=== PATIENT | male | born 1990 | race Caucasian/White ===

== ENCOUNTER 2017-12-16 15:26 | Observation (INO) ==
[~2017-12-16 15:26] MED LIST: Glycopyrrolate Inj 1 MG/5 ML Syringe IV.PUSH ONE; Lidocaine PF 1% Inj 5 ML Syringe INFILTRATN ONE; Neostigmine Inj 5 MG/5 ML Syringe IV.PUSH ONE; Succinylcholine Inj 100 MG/5 ML Syringe IV.PUSH ONE
[2017-12-16] MEDS ORDERED: Sod Chloride 0.9% Inj 1,000 ML IV.SIG ONE (16:48)
[2017-12-16 17:28] LABS: Baso % (Auto) 0.6 % (0.0-2.0); Eos # (Auto) 0.1 th/mm3 (0.0-0.4); Eos % (Auto) 1.6 % (0.0-4.0); Hematocrit 43.6 % (39.0-51.0); Lymph % (Auto) 26.2 % (9.0-44.0); Mean Corpuscular HGB Conc 34.3 % (32.0-36.0); Mean Corpuscular Hemoglobin 29.1 pg (27.0-34.0); Mean Corpuscular Volume 84.6 fL (80.0-100.0); Mean Platelet Volume 8.2 fL (7.0-11.0); Mono # (Auto) 0.6 th/mm3 (0.0-0.9); Mono % (Auto) 8.6 % (0.0-8.0); Neut # (Auto) 4.7 th/mm3 (1.8-7.7); Platelet Count 221 th/mm3 (150-450); Red Blood Count 5.15 mil/mm3 (4.50-5.90); White Blood Count 7.4 th/mm3 (4.0-11.0)
[2017-12-16 17:38] LABS: Bacteria,Urine Rare /hpf; Bilirubin,Urine Negative (Negative); Clarity,Urine Hazy (Clear); Color,Urine Yellow (Yellw/Straw); Glucose,Urine (UA) Negative (Negative); Leukocyte Esterase,Urine Negative (Negative); Mucus,Urine Many /lpf (Occasional); Nitrite,Urine Negative (Negative); Specific Gravity,Urine 1.029 (1.002-1.035); Squamous Epithelial Cell,Urine 1 /hpf (0-5)
[2017-12-16] MEDS ORDERED: Morphine Inj 4 MG/ML Vial IV.PUSH ONE ×3 (17:46→20:45)
[2017-12-16 17:49] LABS: Albumin 4.4 g/dL (3.4-5.0); Anion Gap 7 meq/L (5-15); Aspartate Aminotransferase 32 U/L (15-37); Blood Urea Nitrogen 14 mg/dL (7-18); Carbon Dioxide 26.9 meq/L (21.0-32.0); Chloride 105 meq/L (98-107); Glomerular Filtration Rate 75 mL/min (>89); Glucose,Random 89 mg/dL (74-106); Lipase 123 U/L (73-393); Potassium 3.5 meq/L (3.5-5.1); Sodium 139 meq/L (136-145)
[2017-12-16 17:53] LABS: Alanine Aminotransferase 51 U/L (12-78); Alkaline Phosphatase 59 U/L (45-117); Total Protein 8.8 g/dL (6.4-8.2)
[2017-12-16] MEDS ORDERED: Diatrizoate Meglum/Diatrizoate Sod Liq 9 ML UDC ONE (18:16)
[2017-12-16] MEDS ORDERED: Diatrizoate Meglum/Diatrizoate Sod Liq 9 ML UDC PO ONE (18:30)
--- NOTE | 2017-12-16 19:07 | CT ---
EXAM DATE: 12/16/2017 6:58 PM EDT AGE/SEX: 27 years / Male INDICATIONS: Right lower abdomen pain, rule out appendicitis CLINICAL DATA: This is the patient's initial encounter. Patient reports that signs and symptoms have been present for 1 day and indicates a pain score of 10/10. MEDICAL/SURGICAL HISTORY: Gastroesophageal reflux disease. None. ORAL CONTRAST: Prescribed oral contrast ingested. RADIATION DOSE: 9.75 CTDI (mGy) COMPARISON: No prior exams available for comparison. TECHNIQUE: Multiple contiguous axial images were obtained through the abdomen and pelvis following b olus infusion of 96ML ml Omnipaque 350 (iohexol) nonionic water-soluble contrast as a single exam d ose. Prescribed oral contrast ingested. Using automated exposure control and adjustment of the mA an d/or kV according to patient size, radiation dose was kept as low as reasonably achievable to obtain optimal diagnostic quality images. DICOM format image data is available electronically for review an d comparison. FINDINGS: Lower lungs are clear. There is no pericardial effusion Liver and gallbladder are unremarkable . Pancreas and spleen appear normal Adrenal glands unremarkable Right left kidneys are normal with symmetrical function There is no ascites or adenopathy The cecum and ascending colon appear normal.. I do not see an appendix. However, there are no inflammatory changes in the right lower quadrant. There is mild bowel wall thickening in the transverse colon. The descending colon appears normal In the pelvis there are a few are scattered diverticuli in a short segment of the sigmoid colon. Pelvis is otherwise unremarkable. There is no free fluid or free air. There are mild degenerative changes in the lower lumbar spine. CONCLUSION: I do not see inflammatory changes in the right lower quadrant. I do not see the appendix either. Mild bowel wall thickening in the transverse colon nonspecific. There is no free fluid or adenopathy.enopathy. Electronically signed by: Ty Guerrero MD 12/16/2017 7:05 PM EDT
[2017-12-16] MEDS ORDERED: Acetaminophen 325 MG Tablet PO PRN (19:53)
[2017-12-16] MEDS ORDERED: Bisacodyl 10 MG Supp RECTAL PRN (19:53)
[2017-12-16] MEDS ORDERED: Temazepam 15 MG Capsule PO PRN (19:53)
--- NOTE | 2017-12-16 19:56 | P.HPIM ---
History of Present Illness Primary Care Physician: No Primary Care Physician History of Present Illness: This is a 27-year-old male with no significant PMH who presented to the ER with complaints of RLQ pain x2 days. States symptoms have gotten progressively worse , pain is now severe, 10/10, non-radiating, associated w/ nausea and decreased appetite, but no vomiting or diarrhea. No h/o similar symptoms in the past. Denies fever or chills. On arrival, BP 144/83, HR 89, O2 sat 98% on RA, Afebrile. CBC unremarkable. Chemistry essentially unremarkable. CRP 5.3. UA negative for UTI. CT Abdomen/Pelvis with appendix not visualized, mild bowel wall thickening in transverse colon. Dr. Shaikh consulted, will re-eval in am for possible appendicitis/surgical intervention. - Diagnosis (1) Acute appendicitis (2) Intractable abdominal pain Review of Systems All other systems reviewed negative except as stated in HPI PMFSH - History History Provided By: Patient - Medical History Medical History: Medical History (Last Reviewed 12/16/17 @ 19:58 by BHARGAV Rizzo) Patient denies medical problems Acid reflux [place] teeth extracted - Tobacco History Smoking Status: Never smoker - Alcohol History How Often Do You Have a Drink Containing Alcohol: 2 to 4 times a month - Substance Use History Substance History: No History of Abuse - Travel History Recent Travel in the [place] Within the Last 8 Weeks: No Recent Travel Out of the Country Within the Last 8 Weeks: No - Immunization History Tetanus Immunization: >5 Years Hx Influenza Vaccine This Season: No Medications and Allergies Allergies Allergy/AdvReac Type Severity Reaction Status Date / Time bee venom protein (honey bee) Allergy Severe Swelling Verified 12/16/17 17:01 erythromycin base Allergy Severe Rash Verified 12/16/17 17:01 penicillin G Allergy Severe Rash Verified 12/16/17 17:01 Sulfa (Sulfonamide Allergy Severe Rash Verified 12/16/17 17:01 Antibiotics) sulfamethoxazole Allergy Severe Rash Verified 12/16/17 17:01 trimethoprim Allergy Severe Rash Verified 12/16/17 17:01 Home Medications Medication Instructions Recorded Confirmed Type pantoprazole [Protonix] 40 mg PO DAILY 12/16/17 12/16/17 History Exam Vital signs: Vital Signs 12/16/17 15:56 12/16/17 16:53 12/16/17 19:21 Temperature 98.3 F Pulse Rate 89 69 67 Respiratory Rate Blood Pressure 144/83 H 138/84 124/75 Pulse Oximetry 98 100 99 Intake & Output 12/16/17 12/16/17 12/17/17 06:59 18:59 06:59 Intake Total 1000 / 1000 Balance 1000 / 1000 Weight 92.986 kg Intake: IV 1000 / 1000 NS Inj 1,000 ML @ Wide Open IV. 1000 / 1000 SIG BOLUS ONE Rx#:[id number] Narrative: PE: GENERAL: Very pleasant young white male in no acute distress. Mom at bedside. HEENT: PERRLA, EOMI. No scleral icterus or conjunctival pallor. No lid lag or facial droop. CARDIOVASCULAR: Regular rate and rhythm. No obvious murmurs to auscultation. No chest tenderness to palpation. RESPIRATORY: No obvious rhonchi or wheezing. Clear to auscultation. Breath sounds equal bilaterally. GASTROINTESTINAL: Abdomen soft, non-tender, nondistended. BS normal. RLE tenderness to palpation, +rebound MUSCULOSKELETAL: Extremities without clubbing, cyanosis, or edema. No obvious deformities. NEUROLOGICAL: Awake, alert and oriented x4. No focal neurologic deficits. Moving both upper and lower extremities spontaneously. Results - Labs CBC & Chem 7: 12/16/17 16:08 12/16/17 16:08 Labs: Short CBC 12/16/17 Range/Units 16:08 WBC 7.4 (4.0-11.0) th/mm3 Hgb 15.0 (13.0-17.0) gm/dL Hct 43.6 (39.0-51.0) % Plt Count 221 (150-450) th/mm3 BMP 12/16/17 16:08 Sodium 139 Potassium 3.5 Chloride 105 Carbon Dioxide 26.9 BUN 14 Creatinine 1.18 Calcium 9.0 Liver Function 12/16/17 Range/Units 16:08 Total Bilirubin 0.5 (0.2-1.0) mg/dL AST 32 (15-37) U/L ALT 51 (12-78) U/L Alkaline Phosphatase 59 (45-117) U/L Albumin 4.4 (3.4-5.0) g/dL Urine 12/16/17 Range/Units 16:08 Urine Color Yellow (Yellw/Straw) Urine Clarity Hazy H (Clear) Urine pH 5.0 (5.0-8.5) Ur Specific [place] 1.029 (1.002-1.035) Urine Protein 30 H (Neg-Trace) mg/dL Urine Glucose (UA) Negative (Negative) mg/dL - Imaging Impressions Abdomen/Pelvis CT 12/16/17 17:17 CONCLUSION: I do not see inflammatory changes in the right lower quadrant. I do not see the appendix either. Mild bowel wall thickening in the transverse colon nonspecific. There is no free fluid or adenopathy.enopathy. Caprini VTE Risk Assessment Caprini VTE Risk Assessment: No/Low Risk (score <= 1) Caprini Risk Assessment Model: Point Value = 1 Point Value = 2 Point Value = 3 Point Value = 5 Age 41-60 Minor surgery BMI > 25 kg/m2 Swollen legs Varicose veins or History of unexplained or recurrent spontaneous Oral contraceptives or hormone replacement Sepsis (< 1 month) Serious lung disease, including pneumonia (< 1 month) Abnormal pulmonary function Acute myocardial infarction Congestive heart failure (< 1 month) History of inflammatory bowel disease Medical patient at bed rest Age 61-74 Arthroscopic surgery Major open surgery (> 45 min) Laparoscopic surgery (> 45 min) Malignancy Confined to bed (> 72 hours) Immobilizing plaster cast Central venous access Age >= 75 History of VTE Family history of VTE Factor V Leiden Prothrombin [id number] Lupus anticoagulant Anticardiolipin antibodies Elevated serum homocysteine Heparin-induced thrombocytopenia Other congenital or acquired thrombophilia Stroke (< 1 month) Elective arthroplasty Hip, pelvis, or leg fracture Acute spinal cord injury (< 1 month) Prophylaxis Regimen: Total Risk Factor Score Risk Level Prophylaxis Regimen 0-1 Low Early ambulation 2 Moderate Order ONE of the following: *Sequential Compression Device (SCD) *Heparin 5000 units SQ BID 3-4 Higher Order ONE of the following medications: *Heparin 5000 units SQ TID *Enoxaparin/Lovenox 40 mg SQ daily (WT < 150 kg, CrCl > 30 mL/min) *Enoxaparin/Lovenox 30 mg SQ daily (WT < 150 kg, CrCl > 10-29 mL/min) *Enoxaparin/Lovenox 30 mg SQ BID (WT < 150 kg, CrCl > 30 mL/min) AND/OR *Sequential Compression Device (SCD) 5 or more Highest Order ONE of the following medications: *Heparin 5000 units SQ TID (Preferred with Epidurals) *Enoxaparin/Lovenox 40 mg SQ daily (WT < 150 kg, CrCl > 30 mL/min) *Enoxaparin/Lovenox 30 mg SQ daily (WT < 150 kg, CrCl > 10-29 mL/min) *Enoxaparin/Lovenox 30 mg SQ BID (WT < 150 kg, CrCl > 30 mL/min) AND *Sequential Compression Device (SCD) Assessment and Plan - Assessment (1) Acute appendicitis Code(s): K35.80 - Unspecified acute appendicitis Status: Acute (2) Intractable abdominal pain Code(s): R10.9 - Unspecified abdominal pain Status: Acute - Plan A/P: 1. Appendicitis: acute onset of RLQ x2 days, now progressively worse, CT Abd/ Pelvis w/ non-visualized appendix, mild bowel wall thickening of transverse colon, nonspecific, images reviewed. On exam, +rebound. Dr. Shaikh consulted, will re-eval in am for possible appendicitis/surgical intervention. NPO after midnight, IVF, analgesics/antiemetics as needed. 2. Intractable Pain: secondary to above, s/p Morphine/Zofran in ER w/ some improvement however persistent pain complaints, continue analgesics/antiemetics as needed. 3. DVT Prophylaxis: SCD/Teds 4. Social work for d/c planning as needed. 5. Case discussed w/ ER physician at length, labs/records/imaging reviewed by me. (1) Acute appendicitis Qualifiers: Acute appendicitis type: unspecified acute appendicitis type Qualified Code(s ): K35.80 - Unspecified acute appendicitis
--- NOTE | 2017-12-16 20:01 | ED ---
HPI General Chief Complaint: Abdominal Pain Stated Complaint: Abd pain Time Seen by Provider: 12/16/17 16:47 Source: patient Mode of arrival: ambulatory Limitations: no limitations History of Present Illness HPI narrative: 27-year-old male that presents to the ED for evaluation of right lower quadrant abdominal pain since Sunday. Per patient his Sunday he has had this and is progressively getting worse. More severe today. Is what prompted evaluation. Per patient the pain is 8 out of 10. Does not radiate. States only the right lower quadrant. Patient moving his knees close to his chest seemed to help with the pain. Pushing on the abdomen seems to relieve it as well but whenever he lets go the pain gets more severe. States that he feels like a pressure. Per patient he has been having chills and sweats but no fever. No bowel movement issues. No urinary issues. No history of this in the past. Per patient he still has an appendix. No surgeries to his abdomen. Related Data Home Medications Medication Instructions Recorded Confirmed pantoprazole [Protonix] 40 mg PO DAILY 12/16/17 12/16/17 Allergies Allergy/AdvReac Type Severity Reaction Status Date / Time bee venom protein (honey bee) Allergy Severe Swelling Verified 12/16/17 17:01 erythromycin base Allergy Severe Rash Verified 12/16/17 17:01 penicillin G Allergy Severe Rash Verified 12/16/17 17:01 Sulfa (Sulfonamide Allergy Severe Rash Verified 12/16/17 17:01 Antibiotics) sulfamethoxazole Allergy Severe Rash Verified 12/16/17 17:01 trimethoprim Allergy Severe Rash Verified 12/16/17 17:01 Review of Systems ROS Unobtainable All other systems reviewed negative except as stated in HPI [facility] Medical History Medical History Patient denies medical problems (Acute) Acid reflux (Acute) [place] teeth extracted (Acute) Social History Social History Substance History: No History of Abuse Smoking Status: Never smoker How Often Do You Have a Drink Containing Alcohol: 2 to 4 times a month Recent Travel in [facility] within the Last 8 Weeks: No Recent Out of Country Travel within the Last 8 Weeks: No Immunization History Tetanus Immunization: >5 Years Hx Influenza Vaccine This Season: No Exam Narrative Exam Narrative: GENERAL: Well-appearing SKIN: Focused skin assessment warm/dry. HEAD: Atraumatic. Normocephalic. EYES: Pupils equal and round. No scleral icterus. No injection or drainage. ENT: No nasal bleeding or discharge. Mucous membranes pink and moist. NECK: Trachea midline. No JVD. CARDIOVASCULAR: Regular rate and rhythm. No murmur appreciated. RESPIRATORY: No accessory muscle use. Clear to auscultation. Breath sounds equal bilaterally. GASTROINTESTINAL: Abdomen soft, very tender to touch in the right lower quadrant. Especially with deep palpation and when I let go of his belly., nondistended. Hepatic and splenic margins not palpable. MUSCULOSKELETAL: No obvious deformities. No clubbing. No cyanosis. No edema. NEUROLOGICAL: Awake and alert. No obvious cranial nerve deficits. Motor grossly within normal limits. Normal speech. PSYCHIATRIC: Appropriate mood and affect; insight and judgment normal. Course Initial Documented Vital Signs Temperature 98.3 F 12/16/17 15:56 Pulse Rate 89 12/16/17 15:56 Respiratory Rate 16 12/16/17 15:56 Blood Pressure 144/83 H 12/16/17 15:56 Pulse Oximetry 98 12/16/17 15:56 Last Documented Vital Signs Temperature 98.3 F 12/16/17 15:56 Pulse Rate 67 12/16/17 19:21 Respiratory Rate 18 12/16/17 19:21 Blood Pressure 124/75 12/16/17 19:21 Pulse Oximetry 99 12/16/17 19:21 Medical Decision Making MDM Narrative Medical decision making narrative: 27-year-old male that presents to the ED for evaluation of right lower quadrant abdominal pain. Patient was properly examined and was found to have signs and symptoms concerning for appendicitis. Labs and imaging order. Labs and imaging show elevated CRP but CAT scan could not evaluate for the appendix. There is some inflammatory changes to the transverse colon. Case was discussed my attending recommends a speak with general surgery. I spoke with general surgery. General surgery Dr. Shaikh recommends admission to medicine for serial exams and possible surgery his symptoms continue. Case discussed with Dr. Vargas who agrees to admission. Differential Diagnosis Differential Diagnosis: Appendicitis versus acute appendix versus acute abdomen Medical Records Medical records reviewed: Yes I reviewed the patient's medical records. Lab Data Lab results reviewed: Yes I reviewed the patient's lab results. Lab results narrative: LFTs within normal limits. Lipase within normal limits. urine within normal limits. CRP of 5 Result diagrams: 12/16/17 16:08 12/16/17 16:08 Lab Results 12/16/17 12/16/17 12/16/17 Range/Units 16:08 16:08 16:08 WBC 7.4 (4.0-11.0) th/mm3 RBC 5.15 (4.50-5.90) mil/mm3 Hgb 15.0 (13.0-17.0) gm/dL Hct 43.6 (39.0-51.0) % MCV 84.6 (80.0-100.0) fL MCH 29.1 (27.0-34.0) pg MCHC 34.3 (32.0-36.0) % RDW 13.0 (11.6-17.2) % Plt Count 221 (150-450) th/mm3 MPV 8.2 (7.0-11.0) fL Neut % (Auto) 63.0 (16.0-70.0) % Lymph % (Auto) 26.2 (9.0-44.0) % Esmeralda % (Auto) 8.6 H (0.0-8.0) % Eos % (Auto) 1.6 (0.0-4.0) % Baso % (Auto) 0.6 (0.0-2.0) % Neut # (Auto) 4.7 (1.8-7.7) th/mm3 Lymph # (Auto) 2.0 (1.0-4.8) th/mm3 Esmeralda # (Auto) 0.6 (0.0-0.9) th/mm3 Eos # (Auto) 0.1 (0.0-0.4) th/mm3 Baso # (Auto) 0.0 (0.0-0.2) th/mm3 WBC Differential . Differential Comment Auto diff final Sodium 139 (136-145) meq/L Potassium 3.5 (3.5-5.1) meq/L Chloride 105 (98-107) meq/L Carbon Dioxide 26.9 (21.0-32.0) meq/L Anion Gap 7 (5-15) meq/L BUN 14 (7-18) mg/dL Creatinine 1.18 (0.60-1.30) mg/dL Estimated GFR 75 L (>89) mL/min Random Glucose 89 (74-106) mg/dL Lactic Acid 0.6 (0.4-2.0) mmol/L Calcium 9.0 (8.5-10.1) mg/dL Total Bilirubin 0.5 (0.2-1.0) mg/dL AST 32 (15-37) U/L ALT 51 (12-78) U/L Alkaline Phosphatase 59 (45-117) U/L C-Reactive Protein 5.30 H (0.00-0.30) mg/dL Total Protein 8.8 H (6.4-8.2) g/dL Albumin 4.4 (3.4-5.0) g/dL Lipase 123 (73-393) U/L Urine Color (Yellw/Straw) Urine Clarity (Clear) Urine pH (5.0-8.5) Ur Specific [place] (1.002-1.035) Urine Protein (Neg-Trace) mg/dL Urine Glucose (UA) (Negative) mg/dL Urine Ketones (Negative) mg/dL Urine Occult Blood (Negative) Urine Nitrate (Negative) Urine Bilirubin (Negative) Urine Urobilinogen (Less than 2) mg/dL Ur Leukocyte Esterase (Negative) Urine WBC (0-5) /hpf Ur Squamous Epith Cells (0-5) /hpf Urine Bacteria (None) /hpf Urine Mucus (Occasional) /lpf Micro UA Comment Urine Culture Comments 12/16/17 Range/Units 16:08 WBC (4.0-11.0) th/mm3 RBC (4.50-5.90) mil/mm3 Hgb (13.0-17.0) gm/dL Hct (39.0-51.0) % MCV (80.0-100.0) fL MCH (27.0-34.0) pg MCHC (32.0-36.0) % RDW (11.6-17.2) % Plt Count (150-450) th/mm3 MPV (7.0-11.0) fL Neut % (Auto) (16.0-70.0) % Lymph % (Auto) (9.0-44.0) % Esmeralda % (Auto) (0.0-8.0) % Eos % (Auto) (0.0-4.0) % Baso % (Auto) (0.0-2.0) % Neut # (Auto) (1.8-7.7) th/mm3 Lymph # (Auto) (1.0-4.8) th/mm3 Esmeralda # (Auto) (0.0-0.9) th/mm3 Eos # (Auto) (0.0-0.4) th/mm3 Baso # (Auto) (0.0-0.2) th/mm3 WBC Differential Differential Comment Sodium (136-145) meq/L Potassium (3.5-5.1) meq/L Chloride (98-107) meq/L Carbon Dioxide (21.0-32.0) meq/L Anion Gap (5-15) meq/L BUN (7-18) mg/dL Creatinine (0.60-1.30) mg/dL Estimated GFR (>89) mL/min Random Glucose (74-106) mg/dL Lactic Acid (0.4-2.0) mmol/L Calcium (8.5-10.1) mg/dL Total Bilirubin (0.2-1.0) mg/dL AST (15-37) U/L ALT (12-78) U/L Alkaline Phosphatase (45-117) U/L C-Reactive Protein (0.00-0.30) mg/dL Total Protein (6.4-8.2) g/dL Albumin (3.4-5.0) g/dL Lipase (73-393) U/L Urine Color Yellow (Yellw/Straw) Urine Clarity Hazy H (Clear) Urine pH 5.0 (5.0-8.5) Ur Specific [place] 1.029 (1.002-1.035) Urine Protein 30 H (Neg-Trace) mg/dL Urine Glucose (UA) Negative (Negative) mg/dL Urine Ketones Trace (Negative) mg/dL Urine Occult Blood Negative (Negative) Urine Nitrate Negative (Negative) Urine Bilirubin Negative (Negative) Urine Urobilinogen 2.0 H (Less than 2) mg/dL Ur Leukocyte Esterase Negative (Negative) Urine WBC 2 (0-5) /hpf Ur Squamous Epith Cells 1 (0-5) /hpf Urine Bacteria Rare H (None) /hpf Urine Mucus Many H (Occasional) /lpf Micro UA Comment Culture not ind Urine Culture Comments Culture not ind Imaging Data Attestation: I personally reviewed and interpreted this imaging study as follows : Radiologist's impression: Abdomen/Pelvis CT 12/16/17 17:17 CONCLUSION: I do not see inflammatory changes in the right lower quadrant. I do not see the appendix either. Mild bowel wall thickening in the transverse colon nonspecific. There is no free fluid or adenopathy.enopathy. Discharge Plan Discharge Disposition Patient Disposition: 30 Still Patient Discharge Details Diagnosis: Acute appendicitis, Abdominal pain, acute, right lower quadrant Physicians Team ED Provider: Venancio Pascal ED Midlevel Provider: Carlos Swanson Primary Care Provider: Primary Care Valentina Gross Attending Provider: Tereza Vargas Discharge Interventions Interventions: Vital Signs Last Done: 12/16/17 19:21 Status ED Status: Admitted Observation Patient
[2017-12-16] MEDS ORDERED: Bupivacaine/Epinephrine 0.5% Inj 50 ML Vial ONE (21:56)
--- NOTE | 2017-12-16 23:40 | P.OP ---
Date of procedure: 12/25/17 Procedure: dx lap, lap appy, meckels diverticulectomy Anesthesia: GETA Surgeon: David Sahikh MD Estimated blood loss (mL): 5 Pathology: other (appendix, meckels) Operation and Findings: meckels diverticulum
[2017-12-17] MEDS ORDERED: fentaNYL Citrate Inj 100 MCG/2 ML Ampul ONE (00:11)
[2017-12-17] MEDS: Sod Chloride 0.9% Inj 1,000 ML IV.CONT SCH ×3 (01:11→17:16)
[2017-12-17] MEDS: Senna/Docusate Sodium 8.6/50 MG Tablet PO SCH ×2 (01:11→08:05)
[2017-12-17] MEDS: Morphine Inj 4 MG/ML Vial IV.PUSH PRN ×2 (02:46→10:06)
--- NOTE | 2017-12-17 03:50 | MB ---
cc: David Shaikh MD DATE: 12/16/2017 CHIEF COMPLAINT: Abdominal pain. HISTORY OF PRESENT ILLNESS: The patient is a healthy 27-year-old male who presents with acute onset of abdominal pain. He states the pain started around Sunday and continued to get worse. He notes the pain was initially 8/10, currently some relief with morphine at a 6/10. He states that is nonradiating, located in the right lower quadrant, associated nausea, decreased p.o. intake. No vomiting. Denies fevers, but does complain of sweats. He came to the emergency department. Further evaluation included a CT scan without evidence of identification of the appendix. A little bit of stranding around the terminal ileum. PAST MEDICAL HISTORY: Reflux. PAST SURGICAL HISTORY: [place] teeth. SOCIAL HISTORY: Denies smoking. Occasional ETOH. Denies IVDA ALLERGIES: PENICILLIN AND ERYTHROMYCIN. MEDICATIONS: See EMR. FAMILY HISTORY: Hypertension. Denies diabetes. REVIEW OF SYSTEMS: GENERAL: Denies fever or chills. Complains of sweats. HEENT: Denies eye pain, ear pain. NECK: Denies swelling or pain. LUNGS: Denies cough or wheeze. HEART: Denies palpitation or chest pain. ABDOMEN: Complains of nausea and abdominal pain. GENITOURINARY: Denies dysuria or hematuria. ENDOCRINE: Denies polyuria or polydipsia. INTEGUMENT: Denies any masses or lesions. NEUROLOGIC: Denies numbness or tingling. PSYCHIATRIC: Denies any change in mood or sensorium. PHYSICAL EXAMINATION: GENERAL: The patient in no acute distress. VITAL SIGNS: Temperature 98.3, pulse 89, respirations 16, blood pressure 144/83, saturation 98%. HEENT: Pupils equal, round and reactive. NECK: Supple. Trachea midline. LUNGS: Clear to auscultation, bilateral expansion. HEART: S1, S2. Regular rhythm. ABDOMEN: Soft, positive tenderness to palpation in the right lower quadrant, minimal localized rebound, minimal guarding. Nondistended. EXTREMITIES: Warm and well perfused. NEUROLOGIC: GCS of 15, 5/5 motor in all extremities. PSYCHIATRIC: Appropriate mood. Appropriate judgment. LABORATORY AND DIAGNOSTIC DATA: WBC 7.4, hemoglobin 15, hematocrit 43.6, platelets 221. Sodium 139, potassium 3.5, chloride 105, BUN 14, creatinine 1.1. Lactate 0.6, AST 32, ALT 51, CRP 5.3, lipase 123. CT reviewed by myself showing unable to identify appendix, mild bowel wall thickening near transverse colon. ASSESSMENT: The patient is a 27-year-old male who presents with acute onset of abdominal pain. Clinical concern for appendicitis. PLAN: After full clinical, radiologic and laboratory workup, the patient with the above main issues. At this point, the patient does have a normal white count and unable to identify appendix on CT scan. He does have minimal stranding. Concern due to clinical exam and acute onset of pain with some localized rebound for intra-abdominal pathology such as possible acute appendicitis. Discussed with the patient in detail decisions for a diagnostic laparoscopy, possible laparoscopic appendectomy. Discussed with the patient in detail, understands and agrees. Would like to proceed with intervention. MD DONNELL Johnson/jorge/toño , 11:55 PM , 12:04 AM
--- NOTE | 2017-12-17 03:55 | MP ---
cc: David Shaikh MD DATE OF OPERATION: 12/16/2017 PREOPERATIVE DIAGNOSIS: Abdominal pain. POSTOPERATIVE DIAGNOSIS: Acute Meckel's diverticulitis. SURGEON: David Shaikh MD EVALUATION ENGINEER: See OR sheet. ANESTHESIA: GETA. IV FLUIDS: See anesthesia sheet. ESTIMATED BLOOD LOSS: 5 mL. DRAINS: None. COMPLICATIONS: None. WOUND CLASSIFICATION: Clean/contaminated. FINDINGS: Essentially normal appendix. Findings of acute Meckel's diverticulitis. SURGERY PERFORMED: 1. Diagnostic laparoscopy. 2. Laparoscopic appendectomy. 3. Laparoscopic Meckel's diverticulectomy. SPECIMENS: 1. Appendix. 2. Meckel's diverticulum. INDICATIONS: The patient is a 27-year-old male, healthy, who presents with acute onset of abdominal pain. Concern for intra-abdominal pathology, possible appendicitis. Discussed with the patient in detail and decided for diagnostic laparoscopy, possible laparoscopic appendectomy. DETAILS OF PROCEDURE: The patient was taken to the operating suite, placed in supine position. He was prepped and draped in the usual sterile fashion after induction of general endotracheal anesthesia. A brief timeout was done, stating correct patient, procedure and surgical site. We were all in agreement with this. Attention was directed to the umbilicus where a local anesthetic was injected. A small stab maci incision was made with #11 blade. A Veress needle placed. Intra-abdominal placement confirmed with saline drop test. The abdomen insufflated to 15 mm pneumoperitoneum. On cursory inspection, 2 other ports were placed, one 5 mm suprapubic followed by a left lower quadrant 12 mm. The patient was placed in Trendelenburg, airplaned to the left. The patient was explored to the right lower quadrant. On exploration, the appendix was identified and noted to be a relatively long, but essentially normal. Further exploration done in terms of running the small bowel proximally. There was noted approximately 20 inches away from the terminal ileum to be an inflamed Meckel's diverticulum. An Endo-JANAE stapler was obtained and I transected the diverticulum. This was placed in a rubber glove and removed from the abdomen. The staple line was then oversewn with a Lembert suture 3-0 Vicryl. This was done laparoscopically. The appendix was then identified. A small window was made at the base of the mesoappendix. This was done with electro Bovie electrocautery. An Endo-JANAE 35 stapler was used to transect the base of the appendix. The appendix was further mobilized and the mesoappendix was transected with an Endo-JANAE 35 stapler. The appendix was placed in an appendiceal bag and removed from the abdomen. Further exploration did not note any other abnormality. Hemostasis was obtained with electro Bovie electrocautery. The omentum was placed. Pneumoperitoneum was removed. The ports were removed. The fascia was closed in the left lower quadrant port with 0 Vicryl, 4-0 Monocryl used for subcuticular sutures at all port sites. Sterile dressing was placed, including Mastisol and Steri-Strips. The patient tolerated the procedure well. There were no operative complications. All lap and instrument counts were correct at the end of the procedure. The patient was extubated and taken stable to the PACU. MD DONNELL Johnson/jorge/toño , 11:59 PM , 12:07 AM
[2017-12-17 08:13] LABS: Baso % (Auto) 0.1 % (0.0-2.0); Hematocrit 41.8 % (39.0-51.0); Hemoglobin 14.6 gm/dL (13.0-17.0); Lymph # (Auto) 0.6 th/mm3 (1.0-4.8); Lymph % (Auto) 8.4 % (9.0-44.0); Mean Corpuscular Hemoglobin 29.3 pg (27.0-34.0); Mean Corpuscular Volume 83.7 fL (80.0-100.0); Mean Platelet Volume 8.4 fL (7.0-11.0); Mono # (Auto) 0.1 th/mm3 (0.0-0.9); Mono % (Auto) 1.7 % (0.0-8.0); Neut # (Auto) 6.8 th/mm3 (1.8-7.7); Neut % (Auto) 89.8 % (16.0-70.0); Platelet Count 198 th/mm3 (150-450); Red Blood Count 4.99 mil/mm3 (4.50-5.90); Red Cell Distribution Width 12.8 % (11.6-17.2); White Blood Count 7.5 th/mm3 (4.0-11.0)
[2017-12-17 08:44] LABS: Alanine Aminotransferase 41 U/L (12-78); Albumin 3.6 g/dL (3.4-5.0); Alkaline Phosphatase 52 U/L (45-117); Anion Gap 6 meq/L (5-15); Aspartate Aminotransferase 24 U/L (15-37); Blood Urea Nitrogen 11 mg/dL (7-18); Calcium 8.5 mg/dL (8.5-10.1); Carbon Dioxide 24.6 meq/L (21.0-32.0); Chloride 108 meq/L (98-107); Glomerular Filtration Rate Greater Than 89 mL/min (>89); Glucose,Random 126 mg/dL (74-106); Potassium 4.2 meq/L (3.5-5.1); Sodium 139 meq/L (136-145); Total Protein 7.3 g/dL (6.4-8.2)
--- NOTE | 2017-12-17 10:25 | P.PNGS ---
Subjective Patient reports: feels better, tolerating liquids well, afebrile Physical Exam Vital signs: Vital Signs 12/16/17 15:56 12/16/17 16:53 12/16/17 19:21 Temperature 98.3 F Pulse Rate 89 69 67 Respiratory Rate 16 18 18 Blood Pressure 144/83 H 138/84 124/75 Pulse Oximetry 98 100 99 12/16/17 23:58 12/17/17 00:00 12/17/17 00:15 Temperature 97.7 F Pulse Rate 93 H 84 80 Respiratory Rate 12 12 12 Blood Pressure 130/67 127/68 121/61 Pulse Oximetry 100 100 100 12/17/17 00:30 12/17/17 00:45 12/17/17 00:55 Temperature 97.7 F Pulse Rate 86 60 85 Respiratory Rate 14 13 22 Blood Pressure 128/65 130/60 121/60 Pulse Oximetry 99 100 12/17/17 01:18 12/17/17 02:48 12/17/17 04:00 Temperature 97.6 F 97.4 F L Pulse Rate 56 L 54 L Respiratory Rate 20 18 18 Blood Pressure 126/70 119/56 L Pulse Oximetry 99 98 12/17/17 05:37 12/17/17 08:09 Temperature Pulse Rate Respiratory Rate 18 Blood Pressure Pulse Oximetry 98 Intake & Output 12/16/17 12/17/17 12/17/17 18:59 06:59 18:59 Intake Total 1000 / 1000 1200 / 1200 Output Total 305 / 305 Balance 1000 / 1000 895 / 895 Weight 92.986 kg 90.3 kg Intake: IV 1000 / 1000 NS Inj 1,000 ML @ Wide Open IV. 1000 / 1000 SIG BOLUS ONE Rx#:[id number] Anesthesia Amount 1200 / 1200 Output: Urine 300 / 300 Estimated Blood Loss 5 / 5 Other: Date of Last Bowel Movement 12/15/17 12/15/17 Weight On Admission 90.3 kg - Routine Respiratory Exam Present: CTA bilaterally - Routine Cardiovascular Exam Present: RRR - Routine Abdominal Exam Present: soft (incisional tenderness, c/d/i) Assessment and Plan - Plan POD 1 dx lap, lap appy, lap diverticulectomy for meckels diverticulum PLAN Advance to reg soft diet po pain control stool softner oob d/c home after lunch f/u with Dr. Shaikh 1 week pain script on chart
--- NOTE | 2017-12-17 11:37 | P.PN ---
Subjective Interval history: roleraed po some mild post op pain Physical Exam Vital signs: Vital Signs 12/16/17 15:56 12/16/17 16:53 12/16/17 19:21 Temperature 98.3 F Pulse Rate 89 69 67 Respiratory Rate 16 18 18 Blood Pressure 144/83 H 138/84 124/75 Pulse Oximetry 98 100 99 12/16/17 23:58 12/17/17 00:00 12/17/17 00:15 Temperature 97.7 F Pulse Rate 93 H 84 80 Respiratory Rate 12 12 12 Blood Pressure 130/67 127/68 121/61 Pulse Oximetry 100 100 100 12/17/17 00:30 12/17/17 00:45 12/17/17 00:55 Temperature 97.7 F Pulse Rate 86 60 85 Respiratory Rate 14 13 22 Blood Pressure 128/65 130/60 121/60 Pulse Oximetry 99 100 12/17/17 01:18 12/17/17 02:48 12/17/17 04:00 Temperature 97.6 F 97.4 F L Pulse Rate 56 L 54 L Respiratory Rate 20 18 18 Blood Pressure 126/70 119/56 L Pulse Oximetry 99 98 12/17/17 05:37 12/17/17 08:09 Temperature Pulse Rate Respiratory Rate 18 Blood Pressure Pulse Oximetry 98 Intake & Output 12/16/17 12/17/17 12/17/17 18:59 06:59 18:59 Intake Total 1000 / 1000 1200 / 1200 Output Total 305 / 305 Balance 1000 / 1000 895 / 895 Weight 92.986 kg 90.3 kg Intake: IV 1000 / 1000 NS Inj 1,000 ML @ Wide Open IV. 1000 / 1000 SIG BOLUS ONE Rx#:[id number] Anesthesia Amount 1200 / 1200 Output: Urine 300 / 300 Estimated Blood Loss 5 / 5 Other: Date of Last Bowel Movement 12/15/17 12/15/17 Weight On Admission 90.3 kg Narrative: afebrile lungs- clear regular rhythm abdomen soft, + few bowel sounds, mildly tendely lower abdomen, soft extremities no edema Results - Labs CBC & Chem 7: 12/17/17 07:15 12/17/17 07:15 Laboratory Results - last 24 hr 12/16/17 12/16/17 12/16/17 16:08 16:08 16:08 WBC 7.4 RBC 5.15 Hgb 15.0 Hct 43.6 MCV 84.6 MCH 29.1 MCHC 34.3 RDW 13.0 Plt Count 221 MPV 8.2 Neut % (Auto) 63.0 Lymph % (Auto) 26.2 Hooker % (Auto) 8.6 H Eos % (Auto) 1.6 Baso % (Auto) 0.6 Neut # (Auto) 4.7 Lymph # (Auto) 2.0 Hooker # (Auto) 0.6 Eos # (Auto) 0.1 Baso # (Auto) 0.0 WBC Differential . Differential Comment Auto diff final Sodium 139 Potassium 3.5 Chloride 105 Carbon Dioxide 26.9 Anion Gap 7 BUN 14 Creatinine 1.18 Estimated GFR 75 L Random Glucose 89 Lactic Acid 0.6 Calcium 9.0 Total Bilirubin 0.5 AST 32 ALT 51 Alkaline Phosphatase 59 C-Reactive Protein 5.30 H Total Protein 8.8 H Albumin 4.4 Lipase 123 Urine Color Urine Clarity Urine pH Ur Specific Gonzales Urine Protein Urine Glucose (UA) Urine Ketones Urine Occult Blood Urine Nitrate Urine Bilirubin Urine Urobilinogen Ur Leukocyte Esterase Urine WBC Ur Squamous Epith Cells Urine Bacteria Urine Mucus Micro UA Comment Urine Culture Comments 12/16/17 12/17/17 12/17/17 16:08 07:15 07:15 WBC 7.5 RBC 4.99 Hgb 14.6 Hct 41.8 MCV 83.7 MCH 29.3 MCHC 35.0 RDW 12.8 Plt Count 198 MPV 8.4 Neut % (Auto) 89.8 H Lymph % (Auto) 8.4 L Hooker % (Auto) 1.7 Eos % (Auto) 0.0 Baso % (Auto) 0.1 Neut # (Auto) 6.8 Lymph # (Auto) 0.6 L Hooker # (Auto) 0.1 Eos # (Auto) 0.0 Baso # (Auto) 0.0 WBC Differential . Differential Comment Auto diff final Sodium 139 Potassium 4.2 Chloride 108 H Carbon Dioxide 24.6 Anion Gap 6 BUN 11 Creatinine 0.94 Estimated GFR Greater than 89 Random Glucose 126 H Lactic Acid Calcium 8.5 Total Bilirubin 0.4 AST 24 ALT 41 Alkaline Phosphatase 52 C-Reactive Protein Total Protein 7.3 D Albumin 3.6 D Lipase Urine Color Yellow Urine Clarity Hazy H Urine pH 5.0 Ur Specific Gonzales 1.029 Urine Protein 30 H Urine Glucose (UA) Negative Urine Ketones Trace Urine Occult Blood Negative Urine Nitrate Negative Urine Bilirubin Negative Urine Urobilinogen 2.0 H Ur Leukocyte Esterase Negative Urine WBC 2 Ur Squamous Epith Cells 1 Urine Bacteria Rare H Urine Mucus Many H Micro UA Comment Culture not ind Urine Culture Comments Culture not ind - Imaging Impressions Abdomen/Pelvis CT 12/16/17 17:17 CONCLUSION: I do not see inflammatory changes in the right lower quadrant. I do not see the appendix either. Mild bowel wall thickening in the transverse colon nonspecific. There is no free fluid or adenopathy.enopathy. Assessment and Plan - Assessment (1) Acute appendicitis Code(s): K35.80 - Unspecified acute appendicitis Status: Acute (2) Intractable abdominal pain Code(s): R10.9 - Unspecified abdominal pain Status: Acute - Plan 27 years old S.P POD 1 dx lap diverticulectomy for Meckels diverticulum S/p lap appendectomy Advance to reg soft diet po pain control stool softner oob off work for 1 week- DC home today regular diet activity as tolerated- no heavy lifting Meds- - percocet per GS FF up with Dr. holland as OP in 1 week (1) Acute appendicitis Qualifiers: Acute appendicitis type: unspecified acute appendicitis type Qualified Code(s ): K35.80 - Unspecified acute appendicitis
[2017-12-17 12:44] VITALS: PULSE 62
[2017-12-17 12:47] VITALS: BP 121/61; RESP 18; TEMP 97.6; O2SAT 97
== END 2017-12-17 19:55 | disposition home or self-care (01) ==
LOC: NEDA 15:26 → NEPE 15:26 → N06 15:26 → NEDA 21:05 → NEPFCDU 21:07 → N06 23:49
PROVIDERS: ADMIT Internal Medicine; ATTEND Internal Medicine
PROC: LAPAPPY (ICD-10-PCS; 2017-12-16 22:42)
DX: Z82.49 Family history of ischemic heart disease and other diseases of the circulatory system; K21.9 Gastro-esophageal reflux disease without esophagitis; Q43.0 Meckel's diverticulum (displaced) (hypertrophic); Z88.0 Allergy status to penicillin; K35.80 Unspecified acute appendicitis; Z88.2 Allergy status to sulfonamides; Z88.1 Allergy status to other antibiotic agents